=== PATIENT | male | born 1985 | race Hispanic/Latino ===

== ENCOUNTER 2018-07-31 10:32 | Emergency (ER) | payer SELFPAY ==
[2018-07-31] MEDS ORDERED: Lidocaine 1% w/Epinephrine 1:100K 20 ML VIAL ONE (10:52)
[2018-07-31] MEDS ORDERED: Tranexamic Acid 1,000 MG/10 ML VIAL ONE (10:57)
[2018-07-31] MEDS ORDERED: Adacel (T-DAP) 0.5 ML SYRINGE ONE (11:18)
[2018-07-31] MEDS ORDERED: Bacitracin Zinc 1 Packet ONE (11:20)
== END 2018-07-31 11:59 | disposition home or self-care (01) ==
LOC: ERS 10:32
DX: S01.81XA Laceration without foreign body of other part of head, initial encounter (principal); W22.8XXA Striking against or struck by other objects, initial encounter
CPT/HCPCS: 12011; 90471; 90715; J2001

== ENCOUNTER 2018-08-07 16:26 | Emergency (ER) | payer SELFPAY | END 2018-08-07 16:57 | disposition home or self-care (01) | LOC: ERS 16:26 | DX: S01.111D Laceration without foreign body of right eyelid and periocular area, subsequent encounter (principal); X58.XXXD Exposure to other specified factors, subsequent encounter | CPT/HCPCS: 99282 ==